=== PATIENT | male | born 1995 | race Caucasian/White ===

== ENCOUNTER 2022-08-12 12:30 | Emergency (ER) | payer SELFPAY ==
[2022-08-12 13:00] VITALS: BP 143/83; PULSE 75; RESP 18; TEMP 97.6; BMI 28.2
[2022-08-12] MEDS ORDERED: DIPHTH,PERTUSS(ACELL),TET 0.5 ML DISP.SYRIN IM ONE ×2 (14:02→14:05)
[2022-08-12] MEDS ORDERED: IBUPROFEN 600 MG TABLET (FP) PO ONE ×2 (14:02→14:05)
== END 2022-08-12 14:59 | disposition home or self-care (01) ==
LOC: JERFT 12:30 → JER 12:30 → JERFT 14:59
PROC: 3E0234Z Introduction of Serum, Toxoid and Vaccine into Muscle, Percutaneous Approach (ICD-10-PCS; principal; 2022-08-12)
DX: S91.332A Puncture wound without foreign body, left foot, initial encounter (principal); W45.0XXA Nail entering through skin, initial encounter
CPT/HCPCS: 73630-TC-LT; 90715; 99284-25

== ENCOUNTER 2025-01-16 12:06 | Emergency (ER) | payer BC ==
[2025-01-16] MEDS ORDERED: oxyCODONE HCL 5 MG TABLET ONE (12:22)
[2025-01-16] MEDS ORDERED: KETOROLAC TROMETHAMINE 30 MG/1 ML VIAL ONE (12:22)
[2025-01-16 12:35] VITALS: BP 156/96; PULSE 73; RESP 18; TEMP 98.4; BMI 26.9
[2025-01-16] MEDS: oxyCODONE HCL 5 MG TABLET PO ONE (12:38)
[2025-01-16] MEDS: KETOROLAC TROMETHAMINE 30 MG/1 ML VIAL IM ONE (12:40)
== END 2025-01-16 17:40 | disposition home or self-care (01) ==
LOC: FER 12:06
PROC: 3E0233Z Introduction of Anti-inflammatory into Muscle, Percutaneous Approach (ICD-10-PCS; principal; 2025-01-16)
DX: S80.912A Unspecified superficial injury of left knee, initial encounter (principal); X58.XXXA Exposure to other specified factors, initial encounter
CPT/HCPCS: 73562-TC-LT-FY; 73718-TC-LT; 99284-25